=== PATIENT | female | born 1960 | race Caucasian/White ===

== ENCOUNTER 2018-11-03 10:02 | Emergency (ER) | payer OTHER, MEDICAID ==
[~2018-11-03] VITALS: Ht 167.6 cm; Wt 54.4 kg
[2018-11-03 11:10] LABS: Basophils # (auto) 0 uL; Basophils % (auto) 0.3 % (0.0-2.0); Eosinophils # (auto) 0 uL; Eosinophils % (auto) 0.1 % (0.0-7.0); Hematocrit 37.9 % (36.0-46.0); Hemoglobin 12.4 g/dL (12.2-16.2); Lymphocytes # (auto) 0.9 uL; Lymphocytes % (auto) 10.3 % (10.0-50.0); Mean Corpuscular Hgb Conc. 32.7 g/dL (32.0-36.0); Mean Corpuscular Volume 85.6 fL (80.0-100.0); Monocytes # (auto) 0.3 uL; Neutrophils # (auto) 7.4 uL; Neutrophils % (auto) 86.3 % (37.0-80.0); Nucleated Red Blood Cells % 0.1 %; Platelet Count (auto) 358 10^3/uL (140-450); Red Blood Cells 4.42 10^6/uL (4.0-5.20); Red Cell Distribution Width 15.2 % (11.8-14.3); White Blood Cell 8.6 10^3/uL (4.4-10.8)
[2018-11-03 11:24] LABS: Albumin 3.7 g/dL (3.4-5.0); Blood Urea Nitrogen 19 mg/dL (7-18); Chloride 99 mmol/L (98-107); Glucose 112 mg/dL (74-106); Potassium 3.9 mmol/L (3.5-5.1); Sodium 133 mmol/L (136-145)
[2018-11-03 11:32] LABS: Alanine Aminotransferase 17 U/L (13-56); Alkaline Phosphatase 119 U/L (45-117); Anion Gap 6 (5-15); Aspartate Aminotransferase 15 U/L (15-37); BUN/Creatinine Ratio 19.2; Bilirubin, Total 0.4 mg/dL (0.2-1.0); Carbon Dioxide 28 mmol/L (21-32); GFR African American 74 mL/min; GFR Non-African American 61 mL/min; Total Protein 7.6 g/dL (6.4-8.2)
[2018-11-03 15:36] VITALS: BP 149/100
== END 2018-11-03 15:41 | disposition home or self-care (01) ==
LOC: ER 10:02 → EDBD 10:02 → ER 15:41
DX: G45.9 Transient cerebral ischemic attack, unspecified (principal); I10 Essential (primary) hypertension; Z88.8 Allergy status to other drugs, medicaments and biological substances
CPT/HCPCS: 36415; 70450; 80053; 84484; 85025; 93005